=== PATIENT | male | born 1995 | race Caucasian/White ===

== ENCOUNTER 2018-05-27 12:12 | Emergency (ER) | payer SELFPAY ==
[~2018-05-27] VITALS: Ht 162.6 cm; Wt 70.4 kg
[2018-05-27 12:27] VITALS: BP 130/62; PULSE 75; RESP 18; Ht 162.6 cm; Wt 70.4 kg
[2018-05-27] MEDS ORDERED: BEN25 PO (15:37)
[2018-05-27] MEDS ORDERED: TRIA15CR55 TOP (15:37)
[2018-05-27] MEDS ORDERED: ELIM TOP (15:37)
--- NOTE | 2018-05-27 15:40 | ERD ---
ER Documentation Chief Complaint Chief Complaint rash on hands and inner thigh HPI 22-year-old male presents with a rash on his hands for the last month. He also has areas in his groin and his axilla. His sibling has the same. He has not sought medical treatment prior to today. Denies fevers, vomiting, shortness of breath, additional symptoms. ROS All systems reviewed and are negative except as per history of present illness. Medications Home Meds Active Scripts Diphenhydramine Hcl* (Benadryl*) 25 Mg Cap, 25 MG PO Q6, #15 CAP Prov:HERMAN RAMIREZ MD 05/27/18 Triamcinolone Acetonide (Triamcinolone Acetonide) 0.1% - 15 Gm Cream.gm., 1 APPLIC TOP BID for 5 Days, #1 TUB Prov:HERAMN RAMIREZ MD 05/27/18 Permethrin* (Elimite*) 5% Cr, 1 APPLIC TOP ONCE for 1 Day, TUB 2 bottles. Prov:HERMAN RAMIREZ MD 05/27/18 PMhx/Soc Medical and Surgical Hx: pt denies Medical Hx, pt denies Surgical Hx Hx Alcohol Use: No Hx Substance Use: No Hx Tobacco Use: No FmHx Family History: No diabetes, No coronary disease, No other Physical Exam Vitals Vital Signs Date Temp Pulse Resp B/P (MAP) Pulse Ox O2 O2 Flow FiO2 Time Delivery Rate 05/27/18 97.7 75 18 130/62 99 12:27 (84) Physical Exam Const: No acute distress Head: Atraumatic Eyes: Normal Conjunctiva ENT: Normal External Ears, Nose and Mouth. Neck: Full range of motion. No meningismus. Resp: Clear to auscultation bilaterally Cardio: Regular rate and rhythm, no murmurs Abd: Soft, non tender, non distended. Normal bowel sounds Skin: No petechiae or purpura. Excoriated macular papular rash in the web spaces of the hands a few areas in the groin and axilla as well. Back: No midline or flank tenderness Ext: No cyanosis, or edema Neur: Awake and alert Psych: Normal Mood and Affect Procedures/MDM Patient has signs and symptoms of dermatitis, likely scabies. Will treat with permethrin, triamcinolone, Benadryl, primary care follow-up and return precautions for his no signs appropriate, colitis, additional complications. Patient was instructed on proper treatment of permethrin, washing of linens, contagiousness and treatment of other household members.. The patient was stable with no new complaints during the ER course. Clinically, there is no current evidence to suggest meningitis, sepsis, acute abdomen, pneumonia, stroke, acute coronary syndrome, pulmonary embolism, aortic dissection or any other emergent condition appearing to require further evaluation or hospitalization. Patient counseled regarding my diagnostic impression and care plan. Prior to discharge all questions answered. Pt agrees with treatment plan and understands strict return precautions. Pt is instructed to follow up with primary care provider within 24-48 hours. Precautionary instructions provided including instructions to return to the ER if not improving or for any worsening or changing symptoms or concerns. Departure Diagnosis: Primary Impression: Scabies Additional Impression: Rash Condition: Stable Patient Instructions: Scabies Additional Instructions: USE PERMETHRIN EN TODO EL CUERPO. LAVA TODO LA R[place], [place]. LIMPIA EN LA MANANA. HERMAN RAMIREZ MD May 27, 2018 15:40
== END 2018-05-27 16:04 | disposition home or self-care (01) ==
LOC: FTE 12:12
DX: B86 Scabies (principal)
CPT/HCPCS: 99283